=== PATIENT | male | born 1980 | race Caucasian/White ===

== ENCOUNTER 2022-11-06 15:21 | Emergency (ER) | payer BC, SELFPAY ==
[2022-11-06] MEDS ORDERED: HYDROcodone/Acetaminophen 10/325 mg Tablet ONE (18:14)
[2022-11-06] MEDS ORDERED: Ondansetron ODT 4 MG TAB ONE (18:14)
== END 2022-11-06 18:28 | disposition home or self-care (01) ==
LOC: ERS 15:21
DX: L02.31 Cutaneous abscess of buttock (principal); F17.210 Nicotine dependence, cigarettes, uncomplicated
CPT/HCPCS: 10080; Q0162